=== PATIENT | male | born 1960 | race Caucasian/White ===

== ENCOUNTER → 2024-10-04 | Outpatient (CLI) | payer MEDICARE ==
--- NOTE | 2024-10-04 10:20 | US ---
EXAMINATION TYPE: US Aorta Screening DATE OF EXAM: 10/04/2024 COMPARISON: NONE CLINICAL INDICATION: Male, 63 years old with history of I71.40 AAA without rupture; HTN- on meds TECHNIQUE: Multiple sonographic images of the abdominal aorta are obtained with grayscale and color D oppler imaging. FINDINGS: EXAM MEASUREMENTS: Abdominal Aorta: Proximal: 2.5 x 2.4 cm Mid: 2.1 x 2.0 cm Distal: 2.0 x 1.7 cm Bifurcation: Right Iliac: 1.3 x 1.0 cm Left Iliac: 1.2 x 1.0 cm WELLNESS NURSE RN NOTES: No AAA visualized at time of scan IMPRESSION: No evidence for aortic aneurysm. No further workup recommended for negative screening aortic aneurysm ultrasound per Society of Vascular [employer] Recommendations. [email or web address], , 10/04/2024 10:18 AM
== END | disposition home or self-care (01) ==
LOC: RADUSWWP 08:18
PROVIDERS: ATTEND Internal Medicine Geriatric Medicine
DX: Z13.6 Encounter for screening for cardiovascular disorders (principal); I71.40 Abdominal aortic aneurysm, without rupture, unspecified; I10 Essential (primary) hypertension
CPT/HCPCS: 76706